=== PATIENT | male | born 1995 | race Caucasian/White ===

== ENCOUNTER 2020-09-16 11:46 | Outpatient (REF) | payer BC, SELFPAY ==
[2020-09-17 21:47] LABS: Lyme Abs Screen <0.90 index
[2020-09-18 15:47] LABS: Babesia IgG <1:64 titer (<1:64); Babesia IgM <1:20 titer (<1:20)
[2020-09-19 15:37] LABS: A. Phagocytophilum Ab IgG <1:64 (<1:64); A. Phagocytophilum Ab IgM <1:20 (<1:20); E. Chaffeensis Ab IgG <1:64 (<1:64); E. Chaffeensis Ab IgM <1:20 (<1:20)
== END 2020-09-16 11:47 | disposition home or self-care (01) ==
LOC: HO.MANLDS 11:46
PROVIDERS: PCP Physician Assistant; Visit Provider Physician Assistant
DX: T14.8XXA Other injury of unspecified body region, initial encounter (principal)
CPT/HCPCS: 86618; 86666; 86753